=== PATIENT | female | born 1990 | race Caucasian/White ===

== ENCOUNTER 2020-08-22 09:37 | Outpatient (REF) | payer MEDICAID, SELFPAY ==
--- NOTE | 2020-08-22 08:50 | PAPFT_PTH ---
PATIENT: EDEN FOSS LOC: [facility] U#:[id number] AGE/SX: 29/F ROOM: RE08/22/[address]: Tricia Burks DO : 1990 BED: DIS: 08/22/2020 SPEC #: [id number] RECD: 08/22/20 13:01 STATUS: TANIKA REQ #: [id number] [place]: 08/22/20 08:[address]: Tricia Burks DEPT: [facility] Cytology RECD BY: Jes Delacruz Tissues: 1 - CX/ENDOCX FOR PAP SMEARS Procedures: PAP THIN PREP/[facility] Screening Comments: [id number] (UNSATISFACTORY FOR EVALUATION)
--- OUTSIDE RECORDS SUMMARY | 2020-08-22 09:41 | XMS_ITS ---
:1990 Author Care Team Providers Name Role Phone DELORIS DAVIS Primary Care Provider [phone] Allergies Code Code System Name Reaction Severity Status Onset Penicillins Anaphylaxis ? Active ? Notes: All cillins Medications Name Status Start Date Stop Date ? ? Advair Diskus 250 mcg-50 mcg/dose Completed ? 08/19/2018 powder for inhalation azithromycin 250 mg tablet Active ? Not a vailable sulfamethoxazole 800 mg-trimethoprim 160 mg tablet Active ? Not available TAKE ONE TABLET BY MOUTH EVERY 12 HOURS FOR 5 DAYS buspirone 5 mg tablet Completed ? 01/18/2020 Take 1 tablet twice a day by oral route for 30 days. clindamycin HCl 300 mg capsule Completed ? 0 01/18/2020 Roseann Fe 1.5/30 (28) 1.5 mg-30 mcg (21)/75 mg (7) tablet Active ? Not available TAKE ONE TABLET BY MOUTH EVERY DAY lorazepam 0.5 mg tablet Completed ? 01/18/20 20 prednisone 10 mg tablet Completed 10/23/2017 10/24/19 18 1 (one) Tablet: See comments Problems Name Status Onset Date Source ? Family History of Neoplasm of Breast Active 08/19/2018 ? Anxiety Active ? History Migraine Active ? History Impacted Tooth Active ? History Joint Pain Active ? History General Symptom Unknown ? History Pyrexia of Unknown Origin Unknown ? Histor y Lack of Energy Active ? History Atypical Squamous Cells of Undetermined Active ? History Significance on Cervical Papanicolaou Smear History of Clinical Finding in Subject Unknown ? History Contraception Care Management Active ? Hi story Adult Health Examination Unknown ? History Screening for Malignant Neoplasm of Unknown ? History Cervix Procedure by Method Unknown ? History Arthritis Unknown ? History Procedures Date Name Performed by ? 09/02/2011 Extraction of [place] Tooth Information n ot available 09/02/2006 Tonsillectomy Information not avai lable Results Lab Results Date Name Specimen Result Interpretation Description Value Range Status Address ? 07/18/2020 COVID-19 RNA SWAB ? Sars-cov-2 nasopharynx ? Final [place] (SARS-CoV-2), Specimen C ountry QL, guest relations coordinator-PCR, Source Hosp ital Lab Respiratory (Inte rnal): Specimen [address], [place] ? ? SWAB ? Patient Race unknown ? Final No rth [facility] (Internal) : [address], [place] ? ? SWAB ? Patient unknown ? Final [place] Ethnicity [facility] (Internal) : [address], [place] ? ? SWAB ? Sars-cov-2 undetected unde Final N orth RNA tect [facility] (Internal) : [address], [place] ? ? SWAB ? Method see below ? Final [facility] (Internal) : [address] 03/15/2020 Pathology TISS ? Report (see below) ? Vane nash [facility] (Internal) : [address], [place] 03/08/2020 Urinalysis, UR ? UA-color pale yellow pale [facility] Dipstick, yell [facility] Reflex Micro ow Hosp ital Lab (Internal) : [address], [place] ? ? UR ? UA-appear clear priscilla [facility] (Internal) : [address] ? ? UR ? UA-gluc negative nega [facility] (Internal) : [address] ? ? UR ? [facility] [address] ? ? UR ? UA-ketone negative nega [facility] (Internal) : [address] [place] ? ? UR ? UA-spec Grav [address] [facility] 3-[address]. [address] (Internal) : [address] ? ? UR ABNO UA-blood large nega [facility] (Internal) : [address] ? ? UR ? UA-pH 6.5 [pH] 4.6- [facility] 8.0 [facility] [pH] [facility] (Internal) : [address] [place] ? ? UR ? UA-prot negative nega [facility] (Internal) : [address], [place] ? ? UR ? UA-urobil normal norm Final [facility] ab (Internal) : [address] ? ? UR ? UA-nitrite negative nega Final [facility] ab (Internal) : [address] ? ? UR ABNO UA-leuk Est trace nega [facility] [address] 03/08/2020 Urinalysis, UR ? UA-WBC 0-3 [hpf] 0-3 Vane [facility] Microscopic [hpf Count ry ] Hospital ab (Internal) : [address] ? ? UR ABNO UA-RBC 3-5 [hpf] 0-2 Final [facility] [hpf [facility] ] [facility] ab (Internal) : [address] ? ? UR ? UA-bacteria none seen none Final N orth [hpf] seen [facility] ] (Internal) : [address] t ? ? UR ABNO UA-epithelia few [hpf] none Final [facility] seen [facility] ] (Internal) : [address] t ? ? UR ? UA-mucus none seen none Final Nort h [hpf] seen [facility] ] (Internal) : [address] 03/08/2020 Culture UR ? Final microbiology ? Final [place] ([place] results Country Count), Urine Hos pital Lab (Internal) : [address] 01/18/2020 CMP, Serum or S ? g/r 87 mg/dL 74-1 Vane [facility] Plasma 06 Country mg/d [facility] L (Internal) : [address] t ? ? S ? Bun 16 mg/dL 7-17 Final [place] mg/d [facility] ab (Internal) : [address] t ? ? S ? Crea 0.80 mg/dL 0.52 Final [place] -1.0 Country Hospital ab mg/d (Internal) : L [address] t ? ? S ? Ca 9.1 mg/dL 8.4- Final [place] 10.2 Country mg/d Hospital L ab L (Internal) : [address] t ? ? S ? Na 138 mmol/L 137- Final [place] 145 Country mmol Hospital L ab /L (Internal) : [address] t ? ? S ? K 4.2 mmol/L 3.5- Final [place] 5.1 Country mmol Hospital L ab /L (Internal) : [address] t ? ? S ? Cl 102 mmol/L 98-1 Final [place] 07 Country mmol Hospital L ab /L (Internal) : [address] t ? ? S ? Tco2 23.0 mmol/L 22.0 Final [place] -30. Country 0 Hospital L ab mmol (Internal) : /L [address] t ? ? S ? Tp 7.4 g/dL 6.3- Final [place] 8.2 Country g/dL Hospital L ab (Internal) : [address] t ? ? S ? Alb 4.2 g/dL 3.5- Final [place] 5.0 Country g/dL Hospital L ab (Internal) : [address] t ? ? S ? Tbil 0.5 mg/dL 0.2- Final [place] 1.3 Country mg/d Hospital L ab L (Internal) : [address] t ? ? S ? Alp 68 U/L 50-1 Final [place] 36 Country U/L Hospital L ab (Internal) : [address] t ? ? S ? Alt (Sgpt) 15 U/L 9-52 Final [place] U/L Country Hospital L ab (Internal) : [address] t ? ? S ? Ast (Sgot) 22 U/L 14-3 Final [place] 6 Country U/L Hospital L ab (Internal) : [address] 01/18/2020 Pap Test, MISC ? Pap see report ? Final [place] Thinprep, [facility] Cervical Hospital Lab (Internal) : [address] t ? ? MISC ? Report (see below) ? Final Nort h Country Hospital L ab (Internal) : [address] 08/19/2018 Drug Screen, UR - Thc negative neg Final [place] Urine NG/mL (50 Country NG/m Hospital L ab L) (Internal) : NG/m [address] ? ? UR - Pcp negative neg Final [place] (25 Country NG/m Hospital L ab L) (Internal) : [address] t ? ? UR - Elizabeth negative neg Final [place] (150 Country NG/m Hospital L ab L) (Internal) : [address] t ? ? UR - Met negative neg Final [place] (500 Country NG/m Hospital L ab L) (Internal) : [address] t ? ? UR - Opi negative neg Final [place] (100 Country NG/m Hospital L ab L) (Internal) : [address] ? ? UR - Amp negative neg Final [place] (500 Country NG/m Hospital L ab L) (Internal) : [address] ? ? UR - Bzo negative neg Final [place] (150 Country NG/m Hospital L ab L) (Internal) : [address] ? ? UR - Tca negative neg Final [place] (300 Country NG/m Hospital L ab L) (Internal) : [address] ? ? UR - Mtd negative neg Final [place] (200 Country NG/m Hospital L ab L) (Internal) : [address] ? ? UR - Bar negative neg Final [place] (200 Country NG/m Hospital L ab L) (Internal) : [address] ? ? UR - Oxy negative neg Final [place] (100 Country NG/m Hospital L ab L) (Internal) : [address] ? ? UR - Ppx negative neg Final [place] (300 Country NG/m Hospital L ab L) (Internal) : [address] ? ? UR - Bup negative neg Final [place] (10 Country NG/m Hospital L ab L) (Internal) : [address] 08/19/2018 Benzodiazepine UR - Nordiazepam- negative cut o Final North s, by GC/MS NG/mL ff: Country Quantitative 100 Hosp ital Lab Confirmation, NG/m (In ternal): Urine L [address] ? ? UR - Oxazepam-by negative cuto Final No rth GC/MS NG/mL ff: Country 100 Hospital L ab NG/m (Internal) : L [address], [place] ? ? UR - Lorazepam-by negative cuto Final N orth GC/MS NG/mL ff: Country 100 Hospital L ab NG/m (Internal) : L [address], [place] ? ? UR - Temazepam-by negative cuto Final N orth GC/MS NG/mL ff: Country 100 Hospital L ab NG/m (Internal) : L [address], [place] ? ? UR - Ex-coypv-uou negative cuto Final N orth razepam-by NG/mL ff: Countr y GC/MS 100 Hospital L ab NG/m (Internal) : L [address] ? ? UR - 0-Yd-unbjfrm negative cuto Final N orth yesenia-by GC/MS NG/mL ff: Coun try 100 Hospital L ab NG/m (Internal) : L [address] t ? ? UR - Alpha negative cuto Final [place]-alprazolam NG/mL ff: Cou ntry -by GC/MS 100 Hospita l Lab NG/m (Internal) : L [address] t ? ? UR - 8-Rm-ifustje negative cuto Final N orth azepam-by NG/mL ff: Country GC/MS 50 Hospital L ab NG/m (Internal) : L [address] t ? ? UR - Alpha negative cuto Final [place]-triazolam- NG/mL ff: Cou ntry by GC/MS 100 Hospital Lab NG/m (Internal) : L [address] t ? ? UR - Benzodiazepi negative. ? Final [place] angel Country Interpretatio Hos pital Lab n (Internal) : [address] t 01/03/2018 CT RNA, Qual, MISC ? Specimen cervix ? Fin gama [place] PCR, Description Count ry Unspecified Hospi cam Lab Specimen (Interna l): [address] t ? ? MISC ? Chlamydia negative ? Final Nort h Result Country Hospital L ab (Internal) : [address] t ? ? MISC ? GC Result negative ? Final Nort h Country Hospital L ab (Internal) : [address] t 10/21/2017 Venipuncture BLD ? Venpn* ? ? Final [place] Country Hospital L ab (Internal) : [address] 10/21/2017 CMP, Serum or S ? g/r 83 mg/dL 74-1 Vane l [place] Plasma 06 Country mg/d Hospital L ab L (Internal) : [address] t ? ? S ? Bun 11 mg/dL 7-17 Final [place] mg/d Country L Hospital L ab (Internal) : [address] t ? ? S ? Crea 0.80 mg/dL 0.52 Final [place] -1.0 Country 4 Hospital L ab mg/d (Internal) : L [address] t ? ? S ? Ca 9.2 mg/dL 8.4- Final [place] 10.2 Country mg/d Hospital L ab L (Internal) : [address] t ? ? S ? Na 138 mmol/L 137- Final [place] 145 Country mmol Hospital L ab /L (Internal) : [address] t ? ? S ? K 4.9 mmol/L 3.5- Final [place] 5.1 Country mmol Hospital L ab /L (Internal) : [address] t ? ? S ? Cl 99 mmol/L 98-1 Final [place] 07 Country mmol Hospital L ab /L (Internal) : [address] t ? ? S ? Tco2 27.0 mmol/L 22.0 Final [place] -30. Country 0 Hospital L ab mmol (Internal) : /L [address] t ? ? S ? Tp 6.9 g/dL 6.3- Final [place] 8.2 Country g/dL Hospital L ab (Internal) : [address] t ? ? S ? Alb 3.9 g/dL 3.5- Final [place] 5.0 Country g/dL Hospital L ab (Internal) : [address] t ? ? S ? Tbil 0.4 mg/dL 0.2- Final [place] 1.3 Country mg/d Hospital L ab L (Internal) : [address] t ? ? S ? Alp 70 U/L 50-1 Final [place] 36 Country U/L Hospital L ab (Internal) : [address] t ? ? S High Alt (Sgpt) 73 U/L 9-52 Final [place] U/L Country Hospital L ab (Internal) : [address] ? ? S High Ast (Sgot) 46 U/L 14-3 Final [place] 6 Country U/L Hospital L ab (Internal) : [address] 10/21/2017 CRP, High S High Rcrp 2.71 mg/dL 0.10 Final [place] Sensitivity, -0.3 Coun try Serum or 0 Hospital Lab Plasma mg/d (Internal) : L [address] [facility] 10/21/2017 Cyclic S ? Cyclic <15.6 U <20. Final Nort h Citrullinated Citrullinated 0 Country Peptide Ab, Peptide Ab, S (neg Hospital Lab Quant ativ (Internal) : Immunoassay, e) U [address] Serum [address] 10/21/2017 Rf (Rheumatoid BLD ? Rfq 40 {titer} ? F inal [place] Factor), Country Titer, Serum Hosp ital Lab (Internal) : [address] 10/21/2017 Rf (Rheumatoid BLD ABNO [facility] [place] Factor), Serum RMAL [IU]/mL tive C ountry < 10 Hospital L ab [IU] (Internal) : /mL [address] 10/21/2017 Neutrophil BLD ? Anc-manual 2.28 10*3/uL ? Final [place] Count, [facility] Absolute Hospital Lab (Anc), Blood (Int ernal): [address] 10/21/2017 Differential, BLD Low Polys 35 % 40-7 Final [place] Manual, Blood 5 % Cou ntr Hospital L ab (Internal) : [address] ? ? BLD ? Bands 0 % 0-5 Final [place] % [facility] Hospital L ab (Internal) : [address] ? ? BLD ? Lymphs 36 % 20-5 Final [place] 0 % [facility] Hospital L ab (Internal) : [address] ? ? BLD High Schley 16 % 2-10 Final [facility] Hospital L ab (Internal) : [address] ? ? BLD ? Eos 0 % 0-6 Final [place] % Country Hospital L ab (Internal) : [address] ? ? BLD ? Baso 0 % 0-1 Final [facility] Country Hospital L ab (Internal) : [address] ? ? BLD ? Atyp Lymph 13 % ? Final [facility] Hospital L ab (Internal) : [address] ? ? BLD ? Plts, Est. adequate adeq [facility] ab (Internal) : [address] [place] ? ? BLD ? RBC normal norm Final [place] Morphology al Countr y Hospital L ab (Internal) : [address] 10/21/2017 ESR BLD ? Esr 13 mm/h 0-30 Final [place] (Erythrocyte mm/h Coun try Sedimentation Hos pital Lab Rate), Blood (Int ernal): [address] 10/21/2017 CBC W/ Auto BLD ? Wbc 6.5 10*3/uL 5.0- Fin [facility] Diff 10.0 Country 10*3 Hospital L ab /uL (Internal) : [address] ? ? BLD ? Rbc 4.73 10*6/uL 4.10 [facility] Country 0 Hospital L ab 10*6 (Internal) : /uL [address], [address] t ? ? BLD ? Hgb 14.1 g/dL 12.0 Final [place] -16. Country 0 Hospital L ab g/dL (Internal) : [address] ? ? BLD ? Hct 41.7 % 37.0 Final [place] -47. Country 0 % Hospital L ab (Internal) : [address], [address] t ? ? BLD ? Mcv 88.2 fL 80.0 Final [place] -96. Country 0 fL Hospital L ab (Internal) : [address], [place] ? ? BLD ? Mch 29.8 pg 26.0 Final [place] -32. Country 0 pg Hospital L ab (Internal) : [address], [place] ? ? BLD ? Mchc 33.8 g/dL 31.0 Final [place] -35. Country 0 Hospital L ab g/dL (Internal) : [address], [place] ? ? BLD ? Rdw 12.2 % 11.5 Final [place] -14. Country 5 % Hospital L ab (Internal) : [address] ? ? BLD ? Plt 205 10*3/uL 130- Final [place] 450 Country 10*3 Hospital L ab /uL (Internal) : [address] 06/04/2017 Pathology TISS ? Report results below ? Fi nal [place] Study [facility] Hospital L ab (Internal) : [address] 05/08/2017 Pap Test, MISC ? Pap see report ? Final [place] Thinprep, [facility] Cervical Hospital Lab (Internal) : [address] ? ? MISC ? Report (added) ? Correcte [place] results below d Cou ntry Hospital L ab (Internal) : [address] Past Encounters 03/15/2020 Abnormal Cervical Papanicolaou Smear Brandy Varela MD: [address] [place] [address], Ph. 01/20/2020 Active or Passive Immunization SUSAN Hanson: [address] [place] [address], Ph. 01/18/2020 Adult Health Examination; Screening for Malignant Neoplasm of Cervix; Contraception Care Management; Elevated Liver Enzymes Level SUSAN Hanson: [address] [place] [address], Ph. Social History Tobacco Smoking Status Former Smoker Notes: 08/03/20 17, 09/05 ppd Vaccine List Vaccine Type DTaP 1990 01/13/1991 03/19/1991 03/08/1992 09/17/1995 Hep B, adolescent or pediatric 08/17/1999 09/18/1999 08/29/2000 Hib (HbOC) 1990 01/13/1991 03/19/1991 12/09/1991 influenza, seasonal, injectable 07/01/2012 meningococcal MPSV4 10/27/2007 MMR 12/09/1991 04/21/1998 OPV 1990 01/13/1991 03/19/1991 03/08/1992 09/17/1995 Td (adult), adsorbed 09/22/2004 Tdap 10/01/2008 01/20/2020?0.5 mL Plan of Care Reminders Provider Appointments None ? ? recorded. Lab None ? ? recorded. Referral None ? ? recorded. Procedures None ? ? recorded. Surgeries None ? ? recorded. Imaging None ? ? recorded. Vitals 03/15/2020 09:00AM Procedure 30 Height Weight BMI Blood Pressure 166.37 cm 71.21 kg 25.7 kg/m2 120/80 mm[Hg] 01/18/2020 02:20PM Follow Up 40 Weight Blood Pressure 74.71 kg 122/80 mm[Hg] 08/19/2018 04:20PM New Patient 60 Height Weight BMI Blood Pressure 166.37 cm 73.17 kg 26.4 kg/m2 110/76 mm[Hg] 10/24/2017 Height Weight Blood Pressure 166.37 cm 67.72 kg 102/58 mm[Hg] 10/21/2017 Weight Blood Pressure 68.76 kg 118/68 mm[Hg] 06/04/2017 Height Weight Blood Pressure 166.37 cm 63.87 kg 94/64 mm[Hg] 05/08/2017 Height Weight Blood Pressure 165.74 cm 64.86 kg 140/88 mm[Hg] 03/07/2017 Height Weight Blood Pressure 165.1 cm 64.09 kg 124/70 mm[Hg]
== END 2020-08-22 09:57 ==
LOC: LBN 09:37
PROVIDERS: Visit Provider Obstetrics & Gynecology
DX: Z12.4 Encounter for screening for malignant neoplasm of cervix (principal); R87.615 Unsatisfactory cytologic smear of cervix
CPT/HCPCS: 88142

== ENCOUNTER 2023-02-08 08:59 | Outpatient (REF) | payer MEDICAID, SELFPAY ==
--- NOTE | 2023-02-08 08:00 | PAPFT_PTH ---
PATIENT: EDEN FOSS [facility][id number] AGE/SX: 32/F ROOM: RE02/08/[address]: Tricia Burks DO : 1990 BED: DIS: 02/08/2023 SPEC #: [id number] RECD: 02/08/23 12:45 STATUS: TANIKA RESally #: [id number] [place]: 02/08/23 08:[address]: Tricia Burks DEPT: [facility] Cytology RECD BY: Jes Delacruz Tissues: 1 - CX/ENDOCX FOR PAP SMEARS Procedures: PAP THIN PREP/[facility] Screening HPV DNA PROBE Comments: [id number] (HPV 16 & 18/45)
== END 2023-02-08 09:00 | disposition home or self-care (01) ==
LOC: LBN 08:59
PROVIDERS: Visit Provider Obstetrics & Gynecology
DX: Z12.4 Encounter for screening for malignant neoplasm of cervix (principal); R87.613 High grade squamous intraepithelial lesion on cytologic smear of cervix (HGSIL); Z11.51 Encounter for screening for human papillomavirus (HPV); R87.810 Cervical high risk human papillomavirus (HPV) DNA test positive; Z87.410 Personal history of cervical dysplasia
CPT/HCPCS: 88142; 87624

== ENCOUNTER 2023-04-03 16:23 | Outpatient (REF) | payer MEDICAID, SELFPAY ==
--- NOTE | 2023-04-03 16:00 | ENDO_PTH ---
PATIENT: EDEN FOSS LOC: [facility] U#:[id number] AGE/SX: 32/F ROOM: RE04/03/[address]: Tricia Burks DO : 1990 BED: DIS: 04/03/2023 SPEC #: [id number] RECD: 04/03/23 17:25 STATUS: TANIKA CUADRA #: [id number] [place]: 04/03/23 16:[address]: Tricia Burks DEPT: Surgical Specimen RECD BY: Jes Delacruz Tissues: 1 - ENDOCERVICAL BX/CURRETTE 2 - CERVICAL BIOPSY Procedures: GROSS AND MICRO LEVEL 4 Comments: [id number]
== END 2023-04-03 16:24 | disposition home or self-care (01) ==
LOC: LBN 16:23
PROVIDERS: Visit Provider Obstetrics & Gynecology
DX: Z12.4 Encounter for screening for malignant neoplasm of cervix (principal); R87.619 Unspecified abnormal cytological findings in specimens from cervix uteri
CPT/HCPCS: 88305